=== PATIENT | female | born 2000 | race Caucasian/White ===

== ENCOUNTER 2018-04-16 19:20 | Emergency (ER) | payer OTHER ==
[2018-04-16 19:50] LABS: #Basophils 0.1 thou/uL (0.0-0.2); #Eosinphils 0.2 thou/uL (0.0-0.7); #Lymphocytes 2.6 thou/uL (1.20-3.40); #Monocytes 0.4 thou/uL (0.11-0.59); #Neutrophils 4.5 thou/uL (1.40-6.50); %Basophils 1.3 % (0.0-1.0); %Lymphocytes 33.4 % (28.0-48.0); %Monocytes 5.4 % (0.0-4.0); Hemoglobin 14.5 g/dL (12.0-16.0); Mean Corpuscular HGB CONC 33.9 g/dL (32.0-36.0); Mean Corpuscular Hemoglobin 29.7 pg (25.0-35.0); Mean Corpuscular Volume 87.5 fL (78.0-98.0); Mean Platelet Volume 9.1 fL (7.4-10.4); Platelet Count 260 thou/uL (130-400); RBC Distribution Width 11.4 % (11.5-14.5); Red Blood Cell (RBC) Count 4.87 mill/uL (4.00-5.20); White Blood Cell (WBC) Count 7.9 thou/uL (4.8-10.8)
[2018-04-16 19:59] LABS: Bilirubin Negative (Negative); Blood, Urine Negative (Negative); Clarity Clear (Clear); Glucose, Urine (Dipstick) Negative (Negative); Leukocyte Negative (Negative); Nitrite Negative (Negative); Protein, Urine (Dipstick) Negative (Neg-Trace); Urobilinogen 0.2 mg/dL (0.2-1.0); pH, Urine 7.5 (5.0-9.0)
[2018-04-16 20:00] LABS: Pregnancy Test - Urine (BHCG) Negative (Negative); Pregu Control Background? CLEAR/WHITE (CLR/WHITE); Pregu Control Bar Appear? YES (CONTROL BAR)
[2018-04-16] MEDS ORDERED: Ondansetron HCl/PF 4 MG/2 ML Vial ONE (20:00)
[2018-04-16 20:02] LABS: ALT (SGPT) 19 U/L (8-55); AST (SGOT) 19 U/L (5-30); Albumin 4.8 g/dL (3.5-5.0); Alkaline Phosphatase 43 U/L (40-150); Anion Gap 14 mmol/L (10-20); BUN (Urea Nitrogen) 15 mg/dL (8.4-21.0); Bilirubin, Total 0.4 mg/dL (0.2-1.2); Calc. Creatinine Clearance 0 mL/min (70-130); Calcium 9.7 mg/dL (7.8-10.44); Carbon Dioxide 24 mmol/L (22-29); Chloride 106 mmol/L (98-107); Estimated GFR-MDRD 85; Glucose 98 mg/dL (70-105); Lipase 10 U/L (8-78); Protein, Total 7.8 g/dL (6.0-8.3); Sodium 140 mmol/L (136-145)
--- NOTE | 2018-04-16 22:28 | CT ---
CT OF THE ABDOMEN AND PELVIS WITHOUT IV CONTRAST: 04/16/18 INDICATION: History of bilateral flank pain. COMPARISON: None. FINDINGS: No definite renal or ureteral calculus is demonstrated. No hydronephrosis is noted. There is an IUD s een within the uterus. The bladder, rectum, and perirectal soft tissues are unremarkable. No free flu id or enlarged lymph nodes are evident. The unopacified liver, spleen, pancreas, adrenal glands and kidneys are unremarkable appearing. There is a normal appendix in the right lower quadrant of the abdomen. A tiny amount of free fluid is seen within the pelvis. No acute osseous abnormality is evident. IMPRESSION: 1. No renal or ureteral calculus. 2. IUD. 3. Small amount of free fluid in the pelvis may be physiologic in nature. POS: [facility]
== END 2018-04-16 21:02 | disposition home or self-care (01) ==
LOC: SCSER 19:20
DX: R10.9 Unspecified abdominal pain (principal)
CPT/HCPCS: 74176; 80053; 81003; 81025; 82550; 83690; 85025; 85652; 86140; 87086; 96361; 96374; J2405